=== PATIENT | female | born 1990 | race American Indian/Alaskan Native ===

== ENCOUNTER 2018-07-04 06:30 | Emergency (ER) | payer SELFPAY ==
[2018-07-04 06:43] VITALS: BP 129/90; PULSE 61; RESP 18; TEMP 98.2; O2SAT 100
--- NOTE | 2018-07-04 07:20 | C.PDOC ---
History Of Present Illness 27 y/o female presents to the ED complaining of right ear pain since this morning. States that she hears echoes and everything sounds muffled. Patient reports that last week she had bilateral ear pain and a sore throat, which resolved on its own. Otherwise she denies any fever, chills, ear drainage, or other URI symptoms. Time Seen by Provider: 07/04/18 07:10 Chief Complaint (Nursing): ENT Problem History Per: Patient History/Exam Limitations: None Onset/Duration Of Symptoms: Hrs Current Symptoms Are (Timing): Still Present Past Medical History Reviewed: Historical Data, Nursing Documentation, Vital Signs Vital Signs: Last Vital Signs Temp 98.2 F 07/04/18 06:38 Pulse 61 07/04/18 06:38 Resp 18 07/04/18 06:38 BP 129/90 07/04/18 06:38 Pulse Ox 100 07/04/18 06:38 Family History: States: No Known Family Hx - Social History Hx Alcohol Use: Yes Hx Substance Use: No Review Of Systems Except As Marked, All Systems Reviewed And Found Negative. Constitutional: Negative for: Fever, Chills ENT: Positive for: Ear Pain. Negative for: Ear Discharge, Nose Discharge Respiratory: Negative for: Cough, Shortness of Breath Skin: Negative for: Rash Neurological: Negative for: Headache, Dizziness Physical Exam - Physical Exam Appears: Well, Non-toxic, No Acute Distress Skin: Warm, Dry, No Rash Head: Atraumatic, Normacephalic Eye(s): bilateral: Normal Inspection, PERRL, EOMI Ear(s): Left: Normal, Right: TM Erythema (Right TM erythematous and bulging) Nose: Normal Oral Mucosa: Moist Throat: Normal, No Erythema, No Exudate Neck: Normal ROM Pulses: Left Radial: Normal, Right Radial: Normal Neurological/Psych: Oriented x3, Normal Speech, Normal Cranial Nerves Gait: Steady ED Course And Treatment O2 Sat by Pulse Oximetry: 100 Pulse Ox Interpretation: Normal Medical Decision Making Medical Decision Making: Impression: Otitis Media Patient will be discharged home with antibiotics and ibuprofen. Disposition Counseled Patient/Family Regarding: Diagnosis, Need For Followup, Rx Given - Disposition Referrals: [facility] Werner Payne, [Non-Staff] - Disposition: HOME/ ROUTINE Disposition Time: 07:19 Condition: GOOD Additional Instructions: ARTHUR AYALA, thank you for letting us take care of you today. Your provider was Chau Anthony DO and you were treated for EAR PAIN. The emergency medical care you received today was directed at your acute symptoms. If you were prescribed any medication, please fill it and take as directed. It may take several days for your symptoms to resolve. Return to the Emergency Department if your symptoms worsen, do not improve, or if you have any other problems. Please contact your doctor or call one of the physicians/clinics you have been referred to that are listed on the Patient Visit Information form that is included in your discharge packet. Bring any paperwork you were given at discharge with you along with any medications you are taking to your follow up visit. Our treatment cannot replace ongoing medical care by a primary care prov ider outside of the emergency department. Thank you for allowing the [facility] team to be part of your care today. Follow up with your primary care doctor in 3-4 days for re-evaluation and further management. Prescriptions: Amoxicillin/Clavulanate [Augmentin 875 MG-125 MG] 1 tab PO BID #14 tab Ibuprofen [Motrin] 600 mg PO Q6 PRN #20 tab PRN Reason: Pain, Moderate (4-7) Instructions: Ear Infections (Otitis Media) (DC) Forms: [employer] (Hungarian) - POA Present On Arrival: None - Clinical Impression Clinical Impression: Otitis media - Scribe Statement The provider has reviewed the documentation as recorded by the Kashif Whitfield Provider Attestation: All medical record entries made by the Polloibcharity were at my direction and personally dictated by me. I have reviewed the chart and agree that the record accurately reflects my personal performance of the history, physical exam, medical decision making, and the department course for this patient. I have also personally directed, reviewed, and agree with the discharge instructions and disposition.
== END 2018-07-04 07:37 | disposition home or self-care (01) ==
LOC: C.ER 06:30
DX: H66.90 Otitis media, unspecified, unspecified ear (principal)

== ENCOUNTER 2018-07-14 16:12 | Emergency (ER) | payer SELFPAY ==
[2018-07-14 16:21] VITALS: BP 139/82; PULSE 82; RESP 18; TEMP 97.5; O2SAT 99
--- NOTE | 2018-07-14 16:46 | C.PDOC ---
History Of Present Illness 27 year old female presents to ED with complaint of persistent right ear muffled hearing and discomfort. Patient finished his round of amoxicillin on 07/08 and was seen on 07/04 and diagnosed with AOM. Patient denies discharge, fever, and trauma. PERSIST R EAR MUFFLED HEARING, DISCOMFORT. FINISHED AMOXIL 07/08 SEEN 07/04 DX AOM. NO DC, FEVER, TRAUMA, OTHER ASSOC SX EXAM NONTOXIC HEENT R EAR TM INTACT, SHINY, NO ERYTHEMA; +POST AURICULAR EFFUSION. L TM WNL; R EAR CANAL WNL REMAINDER NEG MDM EAR EFFUSION. NALLELY DONIS, ENT REFER Time Seen by Provider: 07/14/18 16:39 Chief Complaint (Nursing): ENT Problem History Per: Patient History/Exam Limitations: None Onset/Duration Of Symptoms: Unknown Current Symptoms Are (Timing): Still Present Quality (Ear): Other (discomfort, muffled hearing) Past Medical History Reviewed: Historical Data, Nursing Documentation, Vital Signs Vital Signs: Last Vital Signs Temp 97.5 F L 07/14/18 16:17 Pulse 82 07/14/18 16:17 Resp 18 07/14/18 16:17 BP 139/82 07/14/18 16:17 Pulse Ox 99 07/14/18 16:17 Primary Care Provider: FAMILY PROVIDER,NO - Medical History PMH: No Chronic Diseases Surgical History: No Surg Hx Family History: States: Unknown Family Hx - Social History Hx Alcohol Use: Yes Hx Substance Use: No Review Of Systems Except As Marked, All Systems Reviewed And Found Negative. ENT: Positive for: Ear Pain (right ear discomfort and muffled hearing) Physical Exam - Physical Exam Appears: Well, Non-toxic, No Acute Distress Skin: Normal Color, Warm, Dry Head: Atraumatic, Normacephalic Eye(s): bilateral: Normal Inspection, PERRL, EOMI Ear(s): Left: Normal, Right: Other (shiny, no erythema, +posterior auricular effusion. ear canal normal ) Nose: Normal, No Discharge Oral Mucosa: Moist Throat: Normal, No Erythema, No Exudate Neck: Normal ROM, No Supple Chest: Symmetrical, No Deformity Cardiovascular: Rhythm Regular, No Murmur Respiratory: No Accessory Muscle Use, No Rales, No Rhonchi, No Wheezing Gastrointestinal/Abdominal: Soft, No Tenderness Extremity: Capillary Refill (<2 seconds) Extremity: Bilateral: Atraumatic, Normal Color And Temperature, Normal ROM Pulses: Left Radial: Normal, Right Radial: Normal Neurological/Psych: Oriented x3, Normal Speech, Normal Cognition ED Course And Treatment O2 Sat by Pulse Oximetry: 99 (in RA) Pulse Ox Interpretation: Normal Medical Decision Making Medical Decision Making: Patient diagnosed with ear effusion. Patient given Flonase, decongestant, and ENT referral. Disposition Counseled Patient/Family Regarding: Diagnosis, Need For Followup, Rx Given - Disposition Referrals: Reginaldo Flores MD [Staff Provider] - [facility]Outside] [facility] [Outside] Disposition: HOME/ ROUTINE Disposition Time: 16:45 Condition: GOOD Additional Instructions: USE NASAL SPRAY X 1 MONTH Prescriptions: Fluticasone Propionate [Flonase] 2 spr REINALDO DAILY #1 bottle Ibuprofen [Motrin] 600 mg PO Q6 #30 tab Pseudoephedrine HCl [Sudafed 24 Hour] 240 mg PO DAILY PRN #1 unit PRN Reason: Sinus Symptoms Instructions: Serous Otitis Media (DC) Forms: [employer] (Japanese) - Clinical Impression Clinical Impression: Middle ear effusion - Scribe Statement The provider has reviewed the documentation as recorded by the Scribe (Arabella Banerjee) All medical record entries made by the Scribe were at my direction and personally dictated by me. I have reviewed the chart and agree that the record accurately reflects my personal performance of the history, physical exam, medical decision making, and the department course for this patient. I have also personally directed, reviewed, and agree with the discharge instructions and disposition.
== END 2018-07-14 17:03 | disposition home or self-care (01) ==
LOC: C.ER 16:12
DX: H65.90 Unspecified nonsuppurative otitis media, unspecified ear (principal)